=== PATIENT | female | born 1940 | race Asian ===

== ENCOUNTER 2023-09-14 20:02 | Inpatient (IN) | payer MEDICARE ==
[~2023-09-14] VITALS: Ht 154.9 cm; Wt 60.1 kg
[2023-09-14] VITALS (156 sets, daily range): BP systolic 89–124; BP diastolic 50–57; PULSE 79–110; TEMP 97.5–97.8; O2SAT 80–100
[2023-09-14] MEDS ORDERED: SYNTHROID0.05 MG/TA PO (20:57)
[2023-09-14] MEDS ORDERED: TOPROL XL 25MG25 MG PO (20:57)
[2023-09-14] MEDS ORDERED: CRESTOR40 MG PO (20:57)
--- NOTE | 2023-09-14 21:35 | NUR ---
UNABLE TO COMPLETE MED REC AT THIS TIME. PT DOES NOT RECALL WHAT MEDICATIONS SHE TAKES AND CLAIMS HER LIST OF THEM IS AT HOME.
[2023-09-14 21:36] LABS: BASO % 0.3 % (0.0-2.0); EOS % 0.1 % (0.0-4.0); GRAN # 5.6 K/mm3 (1.4-6.5); GRAN % 80.8 % (42.2-75.2); HEMATOCRIT 22.9 % (37.0-47.0); HEMOGLOBIN 7.7 g/dl (12.5-16.0); LYMPH # 1.1 K/mm3 (1.2-3.4); LYMPH % 15.8 % (20.0-51.0); MEAN CELL VOLUME 95 fl (80.0-100.0); MEAN CORPUSCULAR HEMOGLOBIN 32 pg (27-31); MEAN CORPUSCULAR HGB CONC 34 g/dl (33.0-37.0); MEAN PLATELET VOLUME 9.5 fl (7.4-10.4); MONO # 0.2 K/mm3 (0.1-0.6); MONO % 2.9 % (1.7-9.3); PLATELET COUNT 157 K/mm3 (130-400); RED BLOOD COUNT 2.41 M/mm3 (4.10-5.30); REDCELL DISTRIBUTION WIDTH-CV 13.6 % (11.5-14.5)
[2023-09-14 21:45] LABS: INR 1.1 (0.8-3.0); PROTHROMBIN TIME 12.4 SECONDS (9.7-12.8)
[2023-09-14 21:46] LABS: ALBUMIN 3.3 gm/dL (3.4-4.8); BILIRUBIN,TOTAL 0.3 mg/dL (0.2-1.2); CREATININE, serum 0.86 mg/dL (0.57-1.11); TOTAL PROTEIN 5.3 gm/dL (6.2-8.1)
[2023-09-14 21:47] LABS: PARTIAL THROMBOPLASTIN TIME 27.7 SECONDS (26.0-37.0)
--- NOTE | 2023-09-14 21:57 | NUR ---
PT ARRIVED VIA EMS TO ICU. PT WAS COMPLAINING OF WEAKNESS, NAUSEA, ANB IMMEDIATELY. SHE THEN PROCEEDS TO VOMIT APPROX 300ML OF BLACK COFFEE GROUND EMESIS. NAHED WAS NOTIFIED OF THIS. PT WAS THEN CONNECTED TO [facility], SLIGHTLY TACHYCARDIC, OTHERWISE VITALS WNL. PT BELONGINGS PLACED IN CABINET. PLAN OF CARE ONGOING.
[2023-09-14] MEDS ORDERED: ASPIRIN E.C. 8181 MG PO (23:26)
[2023-09-15] VITALS (1248 sets, daily range): BP systolic 85–107; BP diastolic 42–83; PULSE 63–114; TEMP 97.6–98.6; O2SAT 74–100
[2023-09-15 04:24] LABS: BASO % 0.2 % (0.0-2.0); EOS % 0.5 % (0.0-4.0); GRAN # 3.6 K/mm3 (1.4-6.5); GRAN % 63.1 % (42.2-75.2); LYMPH # 1.8 K/mm3 (1.2-3.4); LYMPH % 31.1 % (20.0-51.0); MEAN CORPUSCULAR HGB CONC 34 g/dl (33.0-37.0); MONO # 0.3 K/mm3 (0.1-0.6); MONO % 4.9 % (1.7-9.3); PLATELET COUNT 133 K/mm3 (130-400); RED BLOOD COUNT 2.58 M/mm3 (4.10-5.30)
[2023-09-15 04:28] LABS: HEMATOCRIT 23.3 % (37.0-47.0); HEMOGLOBIN 7.8 g/dl (12.5-16.0); MEAN CELL VOLUME 90 fl (80.0-100.0); MEAN CORPUSCULAR HEMOGLOBIN 30 pg (27-31)
[2023-09-15 04:44] LABS: ALBUMIN 2.8 gm/dL (3.4-4.8); BILIRUBIN,TOTAL 0.3 mg/dL (0.2-1.2); CALCIUM 7.3 mg/dL (8.4-10.2); CREATININE, serum 0.76 mg/dL (0.57-1.11); POTASSIUM 4.1 mmol/L (3.5-4.5); TOTAL PROTEIN 4.4 gm/dL (6.2-8.1)
--- NOTE | 2023-09-15 07:36 | NUR ---
REPORT RECEIVED FROM MARIO ALBERTO MARTINEZ. PT IS RESTING IN BED AT THIS WITH EYES CLOSED AND LIGHTS OFF. NO NEEDS ANTICIPATED AT THIS TIME.
--- NOTE | 2023-09-15 08:14 | NUR ---
PT RESTING IN BED WITH TV ON AND REMAINS A&O AT THIS TIME. SHE DENIES PAIN AND N/V. VSS WITH A LOW BP NOTED. BED IN LOW POSITION, CALL LIGHT WITHIN REACH, PT DENIES NEEDS AT THIS TIME
[2023-09-15 08:18] LABS: HEMATOCRIT 21.2 % (37.0-47.0)
[2023-09-15 14:47] LABS: HEMATOCRIT 24.9 % (37.0-47.0); HEMOGLOBIN 8.2 g/dl (12.5-16.0)
[2023-09-16] VITALS (606 sets, daily range): BP systolic 82–141; BP diastolic 42–82; PULSE 65–80; TEMP 97.2–99.3; O2SAT 80–100
[2023-09-16 04:25] LABS: MEAN CELL VOLUME 90 fl (80.0-100.0); MEAN CORPUSCULAR HGB CONC 33 g/dl (33.0-37.0); MEAN PLATELET VOLUME 9.7 fl (7.4-10.4); PLATELET COUNT 112 K/mm3 (130-400); RED BLOOD COUNT 2.54 M/mm3 (4.10-5.30)
[2023-09-16 04:41] LABS: HEMATOCRIT 22.9 % (37.0-47.0); HEMOGLOBIN 7.6 g/dl (12.5-16.0); MEAN CORPUSCULAR HEMOGLOBIN 30 pg (27-31)
[2023-09-16 04:43] LABS: ALBUMIN 2.9 gm/dL (3.4-4.8); CALCIUM 7.3 mg/dL (8.4-10.2); CREATININE, serum 0.74 mg/dL (0.57-1.11); MAGNESIUM 2.1 mg/dL (1.6-2.6); POTASSIUM 3.6 mmol/L (3.5-4.5)
--- NOTE | 2023-09-16 07:05 | NUR ---
Report recieved from MARIO ALBERTO Reese. Reviewed H/H and gtts. Reviewed POC for EGD and colonoscopy today. Pt up to commode at this time. Call light within reach.
--- NOTE | 2023-09-16 10:25 | NUR ---
ATTENDANT ARCADE reviewed pt's clinical record and noted she was admitted for nausea, generalized weakness, anemia secondary to gastric/duodenal ulcer. Social Work student conducted an initial intake with pt @ the bedside with ATTENDANT ARCADE in attendance this morning. Pt was pleasant, oriented to person, time, place and situation, and s/w WIYOT. But she was able to anwser questions appropriately. Pt reports she lives alone with her dog in [place]. She has no children, but has a sister, Mary Lou Moreno, ph# [phone] who is her HCPOA and also resides in [place]. Her sister is caring for her dog and most likely will transport her home @ discharge. Prior to her current hospitalization, pt was independent in her ADL's/IADL's. She ambulates without assistive devices and reports no h/o falls. Pt reports her primary care provider is Dr. Watson, ph# [phone] and she fills her prescriptions at [facility] in [place]. Pt indicated she is anticipating discharge in the am and may need an uber ride home. Will alert weekend SW to f/u with pt in the am.
[2023-09-16 12:17] LABS: HEMATOCRIT 22.8 % (37.0-47.0); HEMOGLOBIN 7.7 g/dl (12.5-16.0)
--- NOTE | 2023-09-16 14:15 | NUR ---
Report called to MARIO ALBERTO Dixon on the surgical floor. Updated about POC and plan for EGD and colonoscopy this afternoon at 1600. Pt transferred upstairs via wheelchair.
--- NOTE | 2023-09-16 14:20 | NUR ---
REPORT RECEIVED FROM ICU NURSE. PT UP TO FLOOR AT THIS TIME. VITALS STABLE, PT A/O X4, NO PAIN AT THIS TIME. PT ONLY COMPLAINT IS DIZZINESS. WILL CONTINUE TO MONITOR.
--- NOTE | 2023-09-16 16:10 | NUR ---
PT UP TO FLOOR AT THIS TIME, VITALS STABLE, A/O X4, NO PAIN. ORDERS FROM DR RIBERA TO ADVANCE TO [facility] DIET.
[2023-09-17 03:49] VITALS: BP 117/55; PULSE 72; TEMP 98.5
[2023-09-17 07:02] LABS: MEAN CELL VOLUME 90 fl (80.0-100.0); MEAN CORPUSCULAR HGB CONC 33 g/dl (33.0-37.0); MEAN PLATELET VOLUME 9.7 fl (7.4-10.4); PLATELET COUNT 120 K/mm3 (130-400); RED BLOOD COUNT 2.47 M/mm3 (4.10-5.30); REDCELL DISTRIBUTION WIDTH-CV 15.9 % (11.5-14.5)
[2023-09-17 07:07] LABS: HEMATOCRIT 22.3 % (37.0-47.0); HEMOGLOBIN 7.3 g/dl (12.5-16.0); MEAN CORPUSCULAR HEMOGLOBIN 30 pg (27-31)
[2023-09-17 07:24] VITALS: BP 127/53; PULSE 70; TEMP 97.9
[2023-09-17 07:33] VITALS: BP_SYST 127
--- NOTE | 2023-09-17 07:35 | NUR ---
PATIENT ALERT AND ORIENTED X4. VSS. PATIENT HERE FOR GI BLEED. PATIENT HAVING LOOSE, GREEN STOOLS THIS AM. BOWEL SOUNDS ACTIVE. PATIENT DENIES ANY PAIN, N/V. IV X2 TO RIGHT WRIST WITH LR RUNNING AT 125ML/HOUR AND RIGHT AC INT FLUSHES WELL. PATIENT ON ROOM AIR. PATIENT DENIES ANY FURTHER NEEDS. CALL LIGHT IN REACH, BED ALARM ON.
[2023-09-17 07:44] LABS: ALBUMIN 2.9 gm/dL (3.4-4.8); CALCIUM 7.4 mg/dL (8.4-10.2); CREATININE, serum 0.76 mg/dL (0.57-1.11); MAGNESIUM 1.8 mg/dL (1.6-2.6); PHOSPHOROUS 3.1 mg/dL (2.3-4.7); POTASSIUM 3.6 mmol/L (3.5-4.5)
[2023-09-17] MEDS ORDERED: CARAFATE S1 GM/10 ML PO (10:11)
[2023-09-17] MEDS ORDERED: PROTONIX 40MG T40 MG PO (10:12)
[2023-09-17] MEDS ORDERED: PLAVIX 75MG TAB75 MG PO (10:49)
[2023-09-17] MEDS ORDERED: FERRO-TIME325 MG PO (10:52)
--- NOTE | 2023-09-17 11:39 | NUR ---
Distribution Systems Serviceperson rounds: Patient is on contact isolation. Distribution Systems Serviceperson spoke to Patient from doorway. Patient is possibly being discharged today. Housekeeping was preparing to go into room, but decided to wait until Patient discharges later today.
--- NOTE | 2023-09-17 13:43 | NUR ---
DISCHARGE INSTRUCTIONS PROVIDED. PATIENT EDUCATION GIVEN. IV'S X2 DC'D. MEDICATIONS REVIEWED. FOLLOW UP APPOINTMENTS DISCUSSED. PATIENT DENIES ANY QUESTIONS OR CONCERNS. PATIENT AND BELONGINGS ESCORTED OUT VIA WHEELCHAIR.
== END 2023-09-17 13:45 | disposition home or self-care (01) | DRG 378 ==
LOC: IMCU 20:02 → ICU 20:42 → SURG 20:42 → ICU 09-15 14:33 → SURG 09-16 14:20
PROVIDERS: Internal Medicine; Internal Medicine Gastroenterology; Physician Assistant; ADMIT Internal Medicine
PROC: 30233N1 Transfusion of Nonautologous Red Blood Cells into Peripheral Vein, Percutaneous Approach (ICD-10-PCS; 2023-09-14)
PROC: 0DBK8ZX Excision of Ascending Colon, Via Natural or Artificial Opening Endoscopic, Diagnostic (ICD-10-PCS; principal; 2023-09-16 16:00)
PROC: 0DB68ZX Excision of Stomach, Via Natural or Artificial Opening Endoscopic, Diagnostic (ICD-10-PCS; 2023-09-16 16:00)
DX: K25.4 Chronic or unspecified gastric ulcer with hemorrhage (principal); D62 Acute posthemorrhagic anemia; K57.30 Diverticulosis of large intestine without perforation or abscess without bleeding; I25.10 Atherosclerotic heart disease of native coronary artery without angina pectoris; E78.5 Hyperlipidemia, unspecified; M81.0 Age-related osteoporosis without current pathological fracture; E03.9 Hypothyroidism, unspecified; I95.9 Hypotension, unspecified; J44.9 Chronic obstructive pulmonary disease, unspecified; D12.2 Benign neoplasm of ascending colon; K21.00 Gastro-esophageal reflux disease with esophagitis, without bleeding; K44.9 Diaphragmatic hernia without obstruction or gangrene; K59.00 Constipation, unspecified; K26.4 Chronic or unspecified duodenal ulcer with hemorrhage; K29.71 Gastritis, unspecified, with bleeding; Z87.891 Personal history of nicotine dependence; Z90.710 Acquired absence of both cervix and uterus; Z88.0 Allergy status to penicillin; Z95.5 Presence of coronary angioplasty implant and graft; Z79.890 Hormone replacement therapy; Z79.82 Long term (current) use of aspirin; Z79.899 Other long term (current) drug therapy
CPT/HCPCS: C9113; J2405; J2704; J7040; J7120; P9016